=== PATIENT | female | born 1950 | race Caucasian/White ===

== ENCOUNTER → 2017-08-16 16:44 | Outpatient (CLI) | payer OTHER, SELFPAY ==
--- NOTE | 2017-08-16 16:54 | DI.RAD.S_ITS ---
PROCEDURE: XR ANKLE LT MIN 3V INDICATIONS: Pain after injury to left ankle TECHNIQUE: 3 views of the ankle were acquired. COMPARISON: None. FINDINGS: Bones: No dislocations. Ankle mortise is normally aligned. No suspicious bony lesions. There is a small nondisplaced fracture at the inferior tip of the lateral malleolus. Soft tissues: No tibiotalar joint effusion. Achilles tendon appears normal. Soft tissue swelling laterally. IMPRESSION: Lateral soft tissue swelling involving the ankle level, and a relatively subtle fracture is identified at the inferior tip of the lateral malleolus, but the ankle mortise joint is not abnormally widened. Dictated by: Arturo Cameron M.D. on 08/16/2017 at 17:09 Approved by: Arturo Cameron M.D. on 08/16/2017 at 17:10
== END ==
PROVIDERS: Family Provider Family Medicine; PCP Family Medicine; Visit Provider Family Medicine
DX: S82.65XA Nondisplaced fracture of lateral malleolus of left fibula, initial encounter for closed fracture (principal); X58.XXXA Exposure to other specified factors, initial encounter
CPT/HCPCS: 73610

== ENCOUNTER → 2018-01-01 11:04 | Outpatient (CLI) | payer OTHER, SELFPAY ==
--- NOTE | 2018-01-01 11:06 | DI.RAD.S_ITS ---
PROCEDURE: XR ANKLE LT MIN 3V INDICATIONS: ankle sprain TECHNIQUE: 3 views of the ankle were acquired. COMPARISON: [facility], CR, XR ANKLE LT MIN 3V, 08/16/2017, 16:33. FINDINGS: Bones: No dislocations. Ankle mortise is normally aligned. No suspicious bony lesions. There is a transverse nondisplaced fracture at the inferior tip of the lateral malleolus. A more inferior acute-appearing fracture have been present in July of this year. Soft tissues: No tibiotalar joint effusion. Achilles tendon appears normal. IMPRESSION: No trauma to the tibia is found that there is a transverse fracture across the inferior aspect of the fibula, above an area of prior more inferior fracture from July of this year.. Dictated by: Arturo Cameron M.D. on 01/01/2018 at 12:06 Approved by: Arturo Cameron M.D. on 01/01/2018 at 12:08
== END ==
PROVIDERS: Family Provider Family Medicine; PCP Family Medicine; Visit Provider Family Medicine
DX: S93.409A Sprain of unspecified ligament of unspecified ankle, initial encounter (principal); S82.65XD Nondisplaced fracture of lateral malleolus of left fibula, subsequent encounter for closed fracture with routine healing
CPT/HCPCS: 73610

== ENCOUNTER → 2018-02-28 13:05 | Outpatient (CLI) | payer OTHER, SELFPAY ==
--- NOTE | 2018-02-28 13:07 | DI.RAD.S_ITS ---
PROCEDURE: XR ANKLE LT MIN 3V INDICATIONS: Left fibula fx TECHNIQUE: 3 views of the ankle were acquired. COMPARISON: [facility], CR, XR ANKLE LT MIN 3V, 01/01/2018, 10:43. FINDINGS: Bones: Distal fibular/lateral malleolar fracture are again noted and unchanged alignment. There is less conspicuous appearance of the fracture lucency. Posterior and plantar calcaneal spurs. Soft tissues: No tibiotalar joint effusion. Achilles tendon appears normal. IMPRESSION: Unchanged alignment of healing lateral malleolar fracture. Dictated by: Stephan Marrero M.D. on 02/28/2018 at 16:10 Approved by: Stephan Marrero M.D. on 02/28/2018 at 16:11
== END ==
PROVIDERS: Family Provider Family Medicine; PCP Family Medicine; Visit Provider Family Medicine
DX: S82.62XD Displaced fracture of lateral malleolus of left fibula, subsequent encounter for closed fracture with routine healing (principal)
CPT/HCPCS: 73610

== ENCOUNTER → 2018-04-09 08:31 | Outpatient (CLI) | payer OTHER, SELFPAY ==
--- NOTE | 2018-04-09 08:36 | DI.RAD.S_ITS ---
PROCEDURE: XR ANKLE LT MIN 3V INDICATIONS: fibula fx TECHNIQUE: 3 views of the ankle were acquired. COMPARISON: [facility], CR, XR ANKLE LT MIN 3V, 02/28/2018, 13:17. [facility], CR, XR ANKLE LT MIN 3V, 01/01/2018, 10:43. FINDINGS: Bones: No previously unidentified fractures or dislocations, and the transverse fracture through the inferior margin of the fibula shows normal alignment with fusion by plain film appearance. Ankle mortise is normally aligned. No suspicious bony lesions. Soft tissues: No tibiotalar joint effusion. Achilles tendon appears normal. IMPRESSION: Healing or healed nondisplaced fracture inferior aspect of the left fibula. Dictated by: Arturo Cameron M.D. on 04/09/2018 at 9:08 Approved by: Arturo Cameron M.D. on 04/09/2018 at 9:09
== END ==
PROVIDERS: Family Provider Family Medicine; PCP Family Medicine; Visit Provider Family Medicine
DX: S82.492D Other fracture of shaft of left fibula, subsequent encounter for closed fracture with routine healing (principal)
CPT/HCPCS: 73610

== ENCOUNTER → 2018-05-10 08:18 | Outpatient (CLI) | payer OTHER, SELFPAY ==
--- NOTE | 2018-05-10 | DI.MG.S_ITS ---
BILATERAL DIGITAL SCREENING MAMMOGRAM 3D/2D WITH CAD: 05/10/2018 CLINICAL: Routine screening. Family history of breast cancer. Comparison is made to exams dated: 05/01/2017 mammogram, 04/21/2016 mammogram, and 04/20/2015 mammogram - [facility]. There are scattered fibroglandular elements in both breasts. Current study was also evaluated with a Computer Aided Detection (CAD) system. No significant masses, calcifications, or other findings are seen in either breast. There has been no significant interval change. IMPRESSION: NEGATIVE There is no mammographic evidence of malignancy. A 1 year screening mammogram is recommended. This exam was interpreted at Station ID: [id number]. NOTE: For mammograms, a report in lay terms will be sent to the patient. Approximately 15% of breast malignancies will not be visualized mammographically. In the management of a palpable breast mass, a negative mammogram must not discourage biopsy of a clinically suspicious lesion. Electronically Signed By: Iván rand/tramaine:05/10/2018 12:55:15 letter sent: Normal Exam ACR BI-RADS Category 1: Negative [id number]
== END ==
PROVIDERS: PCP Family Medicine; Visit Provider Family Medicine
DX: Z12.31 Encounter for screening mammogram for malignant neoplasm of breast (principal); Z80.3 Family history of malignant neoplasm of breast
CPT/HCPCS: 77063; 77067

== ENCOUNTER 2018-06-19 11:15 | Outpatient (RCR) | payer OTHER, SELFPAY ==
--- NOTE | 2018-05-01 15:53 | PT.OIE ---
Current Diagnoses Pain in left ankle and joints of left foot (05/01/18) Stiffness of left ankle, not elsewhere classified (05/01/18) Muscle weakness (generalized) (05/01/18) Nondisplaced fracture of lateral malleolus of left fibula, subsequent encounter for closed fracture with routine healing (05/01/18) Past Medical History (Last Reviewed 01/01/18 @ 10:32 by Kylee Brar LPN) Back problem (Chronic ~2004) Benign tumor of pineal body (Chronic) Carpal tunnel syndrome (Chronic) Cataracts, bilateral (Chronic ~2011) Chronic back pain (Chronic ~2004) Dry eye syndrome (Chronic ~1989) Headache (Chronic ~1987) Hearing loss (Chronic ~2011) Hypertension (Chronic ~2011) Irregular menstrual cycle (Chronic) Migraines (Chronic ~1991) Tear of meniscus of knee (Chronic ~2009) Anemia (Resolved ~2009) Fibroids (Resolved) Fractures (Resolved) Genital warts (Resolved) Measles (Resolved) Past Surgical History (Last Reviewed 01/01/18 @ 10:32 by Kylee Brar LPN) Anesthesia (Resolved) Foreign body (Resolved ~2009) History of oral surgery (Resolved) History of cataract removal with insertion of prosthetic lens Status post arthroscopy (~2010) Status post hysterectomy (~1988) Provider Visit Care Team Role Provider Type John Dejesus MD Attending Provider Physician Family Provider Primary Care Provider Specialty: Family Practice Address: [address] [place] [address] Email: [email or web address] Physical Therapy Initial Evaluation PT-OP-A Visit Information Start: 05/01/18 15:21 Freq: Status: Active Protocol: Document 05/01/18 14:30 DCW (Rec: 05/01/18 15:53 DCW [id number]) Out-Patient Physical Therapy Visit Information Visit Information Visit Type Initial Evaluation Visit Start Time 14:30 Visit Stop Time 15:15 Total Visit Minutes 45 Visit Number 1 Number of HAND BUFFER Visits 0 Evaluation Information Evaluation Date 05/01/18 PT-OP-B Current Condition Start: 05/01/18 15:21 Freq: Status: Active Protocol: Document 05/01/18 14:30 DCW (Rec: 05/01/18 15:53 [facility] [id number]) Current Condition History of Current Condition Onset Date 9 months Current Complaints Left ankle stiffness and weakness s/p distal left fibula Fx History of Current Condition Pt is a 67 year old female presenting 9 months s/p L fibular fracture. Pt reports last July, she fell from a running horse, and experienced severe bruising and swelling in her left ankle. X-rays returned negative, and she slowly improved to the point she was able to get back to horseriding, however in December she re-injured her ankle when her foot got caught between two horses and twisted around. Resultant x- rays showed no new fractures, however noted that she did have a prior fracture from the original injury. Notes that following this injury, she had difficulty walking, and was unable to move laterally. Everything seems to be getting better, but she still has mild pain with lateral movement, and has been out on her horse two times, for 1.5 and 2.5 miles, and both times she was sore by the end of her ride. Additionally, she has increased pain getting up into her stirrups. Prior Treatments and Tests Prior x-rays: Healing or healed nondisplaced fracture inferior aspect of the left fibula per Lina Angeles on 04/09/2018 Treatment Goals Patient/Caregiver Goals Return to all aspects of horse riding pain-free Prior Functional Status Baseline Function- ADL's Independent Baseline Function- Mobility Independent Current Functional Impairments (Reported) Functional Limitations- Recreation/ Pain while horse riding, Hobbies difficulty using stirrups to get onto horse back. PT-OP-C Subjective Start: 05/01/18 15:21 Freq: Status: Active Protocol: Document 05/01/18 14:30 [facility] (Rec: 05/01/18 15:53 [facility] [id number]) OP-PT Subjective Patient Comments Patient Comments Pt notes walking has been much better, but admits she has not been very active over the winter. Patient Reported Progress Improving Patient Questionnaires Foot & Ankle Ability Measure- ADL and Sports FAAM-ADL Score 77/84 = 91.67% FAAM-ADL Impairment 1 to 19% Impaired (Score 67-83 ) FAAM-Sport Score 12/22 = 32.14 FAAM-Sport Impairment 60 to 79% Impaired (Score 6-11 ) PT-OP-F Manual Assessment Start: 05/01/18 15:21 Freq: Status: Active Protocol: Document 05/01/18 14:30 DCW (Rec: 05/01/18 15:53 DCW [id number]) Manual Assessments Soft Tissue Assessment Soft Tissue Mobility Assessment Tenderness to palpation 1/4 - Complaint of pain at left ATF ligament and PTF ligament, Moderate tone throughout left gastrosoleus complex. PT-OP-G Mobility & Gait Start: 05/01/18 15:21 Freq: Status: Active Protocol: Document 05/01/18 14:30 DCW (Rec: 05/01/18 15:53 DCW [id number]) OP Gait Assessment Gait Gait Assistance Required: Independent Able to Maintain Weight Bearing Status Yes During Gait Assistive Devices Assistive Device None Orthotic/Prosthetic Devices or Brace: No Gait Deviations General Gait Pattern Within Normal Limits Comments Gait Comments Community gait distance WNL, mild pain with turning while ambulating a fast sppeds, uncomfortable with uneven surfaces. PT-OP-K Range of Motion Start: 05/01/18 15:21 Freq: Status: Active Protocol: Document 05/01/18 14:30 DCW (Rec: 05/01/18 15:53 DCW [id number]) Ankle and Foot Goniometric Range of Motion Ankle and Foot Measured in Degrees Right Ankle/Foot ROM WFL Yes Left Passive Ankle/Foot ROM WFL No Testing Position Sitting Dorsiflexion with Knee Flexed 10 Plantarflexion 40 Inversion 35 Eversion 20 Left Active Ankle/Foot ROM WFL No Testing Position Sitting Dorsiflexion with Knee Flexed 5 Plantarflexion 50 Inversion 35 Eversion 15 PT-OP-L Special Tests Start: 05/01/18 15:21 Freq: Status: Active Protocol: Document 05/01/18 14:30 DCW (Rec: 05/01/18 15:53 DCW [id number]) Special Tests Foot/Ankle Special Tests Post Tibiotalor Subluxation Test Results Negative Talor Tilt Test Results Negative Anterior Draw Test Results Negative PT-OP-M Strength Start: 05/01/18 15:21 Freq: Status: Active Protocol: Document 05/01/18 14:30 DCW (Rec: 05/01/18 15:53 DCW [id number]) Ankle/Foot Strength Ankle and Foot Manual Muscle Testing Left Dorsiflexion (L4) 4+ Good+ Plantarflexion (S1) 3+ Fair+ Inversion 4+ Good+ Eversion (S1) 4+ Good+ Comments single-leg heel raise on L foot = 2 reps PT-OP-Q Treatments Start: 05/01/18 15:21 Freq: Status: Active Protocol: Document 05/01/18 14:30 DCW (Rec: 05/01/18 15:53 DCW [id number]) Therapeutic Exercises Sitting Exercises Gastroc Stretch Sitting Exercise Name Towel stretch Side left 4-way ankle flexion Sitting Exercise Name 4-way ankle flexion Side left Resistance Lv 2 Equipment Used T-band Standing Exercises Heel-raises Standing Exercise Name Single-leg eccentric heel raises Side left PT-OP-T Assessment and Plan Start: 05/01/18 15:21 Freq: Status: Active Protocol: Document 05/01/18 14:30 DCW (Rec: 05/01/18 15:53 DCW [id number]) Physical Therapy Assessment Rehab Potential Rehabilitation Potential Excellent Evaluation Complexity Number of Personal Factors/Comorbidities 1-2 Number of Body Systems Impaired 1-2 Clinical Presentation at Evaluation Stable Impairments Impairments Activity Tolerance Functional Activities Functional Mobility Pain ROM Soft Tissue Mobility Strength Tone Goals Four Impairment Ankle weakness Jail Goal (LTG) Pt to perform 15 (4+/5 MMT) L single-leg heel raises LTG Duration 05/29/18 Three Impairment Limited ROM Optician Manager Goal (LTG) Left dorsiflexion to increase from 5? to 20? Left eversion to increase from 15? to 25? LTG Duration 05/29/18 Two Impairment Pt unable to ride horses without ankle pain Optician Manager Goal (LTG) Pt to return to riding her horse to pre-morbid distance without increasing ankle pain LTG Duration 05/29/18 One Impairment Pt does not have an appropriate HEP Short Term Goal (STG) Pt to be independent and compliant with an appropriate HEP STG Duration 05/15/18 Assessment Summary Assessment Pt presents with left ankle weakness, stiffness, and activity limitations secondary to her left fibula fracture. Special testing reveals no apparent ligamental rupture, however her continued tenderness along her ATF and PTF likely suggest ligmentus sprain. Pt's ROM is currently limited in dorsiflexion and eversion, and weakness with plantarflexion, although this is likely limited more by pain than true weakness. Pt should benefit from skilled therapy focusing on improving ROM, decreasing gastroc stiffness, strengthening her ankle musculature, and improving her activity tolerance. Physical Therapy Plan Frequency and Duration Frequency of Treatment 1x/Week Duration of Treatment 8 weeks Plan of Care Start Date 05/01/18 Plan of Care End Date 06/26/18 Therapeutic Interventions Therapeutic Interventions Aquatic Therapy Home Exercise Program Joint Mobilizations Manual Therapy Patient/Caregiver Education Soft Tissue Mobilization Therapeutic Activities Therapeutic Exercises Modalities Cold Pack/Ice Massage Electric Stimulation Hot Packs Ultrasound Next Visit Focus/Plan Next Note Type Treatment Note Next Visit Plan Assess HEP, ankle strengthening, ROM, flexibility
--- NOTE | 2018-05-01 15:54 | PT.OPPOC ---
Current Diagnoses Pain in left ankle and joints of left foot (05/01/18) Stiffness of left ankle, not elsewhere classified (05/01/18) Muscle weakness (generalized) (05/01/18) Nondisplaced fracture of lateral malleolus of left fibula, subsequent encounter for closed fracture with routine healing (05/01/18) Provider Visit Care Team Role Provider Type John Dejesus MD Attending Provider Physician Family Provider Primary Care Provider Specialty: Family Practice Address: [address] [place] [address], [id number] Email: [email or web address] Plan Of Care PT-OP-T Assessment and Plan Start: 05/01/18 15:21 Freq: Status: Active Protocol: Document 05/01/18 14:30 DCW (Rec: 05/01/18 15:53 DCW [id number]) Physical Therapy Assessment Rehab Potential Rehabilitation Potential Excellent Evaluation Complexity Number of Personal Factors/Comorbidities 1-2 Number of Body Systems Impaired 1-2 Clinical Presentation at Evaluation Stable Impairments Impairments Activity Tolerance Functional Activities Functional Mobility Pain ROM Soft Tissue Mobility Strength Tone Goals Four Impairment Ankle weakness Vice President Of Talent Acquisition Goal (LTG) Pt to perform 15 (4+/5 MMT) L single-leg heel raises LTG Duration 05/29/18 Three Impairment Limited ROM Senior Care Goal (LTG) Left dorsiflexion to increase from 5? to 20? Left eversion to increase from 15? to 25? LTG Duration 05/29/18 Two Impairment Pt unable to ride horses without ankle pain Senior Care Goal (LTG) Pt to return to riding her horse to pre-morbid distance without increasing ankle pain LTG Duration 05/29/18 One Impairment Pt does not have an appropriate HEP Short Term Goal (STG) Pt to be independent and compliant with an appropriate HEP STG Duration 05/15/18 Assessment Summary Assessment Pt presents with left ankle weakness, stiffness, and activity limitations secondary to her left fibula fracture. Special testing reveals no apparent ligamental rupture, however her continued tenderness along her ATF and PTF likely suggest ligmentus sprain. Pt's ROM is currently limited in dorsiflexion and eversion, and weakness with plantarflexion, although this is likely limited more by pain than true weakness. Pt should benefit from skilled therapy focusing on improving ROM, decreasing gastroc stiffness, strengthening her ankle musculature, and improving her activity tolerance. Physical Therapy Plan Frequency and Duration Frequency of Treatment 1x/Week Duration of Treatment 8 weeks Plan of Care Start Date 05/01/18 Plan of Care End Date 06/26/18 Therapeutic Interventions Therapeutic Interventions Aquatic Therapy Home Exercise Program Joint Mobilizations Manual Therapy Patient/Caregiver Education Soft Tissue Mobilization Therapeutic Activities Therapeutic Exercises Modalities Cold Pack/Ice Massage Electric Stimulation Hot Packs Ultrasound Next Visit Focus/Plan Next Note Type Treatment Note Next Visit Plan Assess HEP, ankle strengthening, ROM, flexibility Plan of Care Dates Plan of Care Start Date 05/01/18 Plan of Care End Date 06/26/18 Please Sign and Return: I have reviewed this Plan of Care and certify that the skilled therapy services above are required to meet the patient?s needs. Physician Signature Date Printed Name and Credentials Clinical Instructor Signature Printed Name and Credentials
--- NOTE | 2018-05-16 12:49 | PT.OTN ---
Current Diagnoses Pain in left ankle and joints of left foot (05/16/18) Physical Therapy Treatment Note PT-OP-A Visit Information Start: 05/01/18 15:21 Freq: Status: Active Protocol: Document 05/16/18 12:00 DCW (Rec: 05/16/18 12:49 DCW [id number]) Out-Patient Physical Therapy Visit Information Visit Information Visit Type Treatment Note Visit Start Time 12:00 Visit Stop Time 12:45 Total Visit Minutes 45 Visit Number 2 Number of DIVING FISHER Visits 0 Evaluation Information Evaluation Date 05/01/18 PT-OP-B Current Condition Start: 05/01/18 15:21 Freq: Status: Active Protocol: Document 05/01/18 14:30 DCW (Rec: 05/01/18 15:53 DCW [id number]) Current Condition History of Current Condition Onset Date 9 months Current Complaints Left ankle stiffness and weakness s/p distal left fibula Fx History of Current Condition Pt is a 67 year old female presenting 9 months s/p L fibular fracture. Pt reports last July, she fell from a running horse, and experienced severe bruising and swelling in her left ankle. X-rays returned negative, and she slowly improved to the point she was able to get back to horseriding, however in December she re-injured her ankle when her foot got caught between two horses and twisted around. Resultant x- rays showed no new fractures, however noted that she did have a prior fracture from the original injury. Notes that following this injury, she had difficulty walking, and was unable to move laterally. Everything seems to be getting better, but she still has mild pain with lateral movement, and has been out on her horse two times, for 1.5 and 2.5 miles, and both times she was sore by the end of her ride. Additionally, she has increased pain getting up into her stirrups. Prior Treatments and Tests Prior x-rays: Healing or healed nondisplaced fracture inferior aspect of the left fibula per Lina Angeles on 04/09/2018 Treatment Goals Patient/Caregiver Goals Return to all aspects of horse riding pain-free Prior Functional Status Baseline Function- ADL's Independent Baseline Function- Mobility Independent Current Functional Impairments (Reported) Functional Limitations- Recreation/ Pain while horse riding, Hobbies difficulty using stirrups to get onto horse back. PT-OP-C Subjective Start: 05/01/18 15:21 Freq: Status: Active Protocol: Document 05/16/18 12:00 DCW (Rec: 05/16/18 12:49 DCW [id number]) OP-PT Subjective Patient Comments Patient Comments Pt had phoned the clinic last Thrsday, reporting that she had been having some increased pain with her HEP. Pt reports she has been feeling better since then, but she did a lot of walking on Monday, and was fairly sore and was limping by the end of the day. PT-OP-F Manual Assessment Start: 05/01/18 15:21 Freq: Status: Active Protocol: Document 05/01/18 14:30 DCW (Rec: 05/01/18 15:53 DCW [id number]) Manual Assessments Soft Tissue Assessment Soft Tissue Mobility Assessment Tenderness to palpation 1/4 - Complaint of pain at left ATF ligament and PTF ligament, Moderate tone throughout left gastrosoleus complex. PT-OP-G Mobility & Gait Start: 05/01/18 15:21 Freq: Status: Active Protocol: Document 05/01/18 14:30 DCW (Rec: 05/01/18 15:53 DCW [id number]) OP Gait Assessment Gait Gait Assistance Required: Independent Able to Maintain Weight Bearing Status Yes During Gait Assistive Devices Assistive Device None Orthotic/Prosthetic Devices or Brace: No Gait Deviations General Gait Pattern Within Normal Limits Comments Gait Comments Community gait distance WNL, mild pain with turning while ambulating a fast sppeds, uncomfortable with uneven surfaces. PT-OP-K Range of Motion Start: 05/01/18 15:21 Freq: Status: Active Protocol: Document 05/01/18 14:30 DCW (Rec: 05/01/18 15:53 DCW [id number]) Ankle and Foot Goniometric Range of Motion Ankle and Foot Measured in Degrees Right Ankle/Foot ROM WFL Yes Left Passive Ankle/Foot ROM WFL No Testing Position Sitting Dorsiflexion with Knee Flexed 10 Plantarflexion 40 Inversion 35 Eversion 20 Left Active Ankle/Foot ROM WFL No Testing Position Sitting Dorsiflexion with Knee Flexed 5 Plantarflexion 50 Inversion 35 Eversion 15 PT-OP-L Special Tests Start: 02/05/19 15:21 Freq: Status: Active Protocol: Document 05/01/18 14:30 DCW (Rec: 05/01/18 15:53 DCW [id number]) Special Tests Foot/Ankle Special Tests Post Tibiotalor Subluxation Test Results Negative Talor Tilt Test Results Negative Anterior Draw Test Results Negative PT-OP-M Strength Start: 05/01/18 15:21 Freq: Status: Active Protocol: Document 05/01/18 14:30 DCW (Rec: 05/01/18 15:53 DCW [id number]) Ankle/Foot Strength Ankle and Foot Manual Muscle Testing Left Dorsiflexion (L4) 4+ Good+ Plantarflexion (S1) 3+ Fair+ Inversion 4+ Good+ Eversion (S1) 4+ Good+ Comments single-leg heel raise on L foot = 2 reps PT-OP-Q Treatments Start: 05/01/18 15:21 Freq: Status: Active Protocol: Document 05/16/18 12:00 DCW (Rec: 05/16/18 12:49 DCW [id number]) Gym Equipment Shuttle Recovery Bilateral Heel Raises Resistance 50# Shuttle Balance Red Details Wide ADE, Staggered Stance, Lateral Weight Shift Therapeutic Exercises Standing Exercises BAPS Standing Exercise Name DF/PF, Inv/Ev, CW/CCW Side left Resistance Lv 5 Calf stretch Standing Exercise Name PETER Reps/Minutes 2x 40 Manual Therapy Treatment Joint Mobilizations 1 Joint Tibiotalar Direction A->P Grade III Body Position Sitting Other Other Manual Treatments PROM of ankle into DF/PF and Inv/Ev Neuro Re-Education Treatment Balance Activities Semi-tandem Stance Details Semi-tandem stance Surface Blue foam SLS Details SLS on foam Surface Blue foam PT-OP-T Assessment and Plan Start: 05/01/18 15:21 Freq: Status: Active Protocol: Document 05/16/18 12:00 DCW (Rec: 05/16/18 12:49 DCW [id number]) Physical Therapy Assessment Impairments Impairments Activity Tolerance Functional Activities Functional Mobility Pain ROM Soft Tissue Mobility Strength Tone Goals Four Impairment Ankle weakness Nursing Home Goal (LTG) Pt to perform 15 (4+/5 MMT) L single-leg heel raises LTG Duration 05/29/18 Three Impairment Limited ROM Nursing Home Goal (LTG) Left dorsiflexion to increase from 5? to 20? Left eversion to increase from 15? to 25? LTG Duration 05/29/18 Two Impairment Pt unable to ride horses without ankle pain Asset Accountant Goal (LTG) Pt to return to riding her horse to pre-morbid distance without increasing ankle pain LTG Duration 05/29/18 One Impairment Pt does not have an appropriate HEP Short Term Goal (STG) Pt to be independent and compliant with an appropriate HEP STG Duration 05/15/18 Assessment Summary Assessment Pt tolerated treatment very well, mild soreness with more physical TherEx and stabilization training, working hard at home with her HEP. Improving ROM and strength since her eval two weeks ago. Physical Therapy Plan Frequency and Duration Frequency of Treatment 1x/Week Duration of Treatment 8 weeks Plan of Care Start Date 05/01/18 Plan of Care End Date 06/26/18 Therapeutic Interventions Therapeutic Interventions Aquatic Therapy Home Exercise Program Joint Mobilizations Manual Therapy Patient/Caregiver Education Soft Tissue Mobilization Therapeutic Activities Therapeutic Exercises Modalities Cold Pack/Ice Massage Electric Stimulation Hot Packs Ultrasound Next Visit Focus/Plan Next Note Type Treatment Note Next Visit Plan Assess HEP, ankle strengthening, ROM, flexibility
--- NOTE | 2018-05-23 12:48 | PT.OTN ---
Current Diagnoses Pain in left ankle and joints of left foot (05/23/18) Physical Therapy Treatment Note PT-OP-A Visit Information Start: 05/01/18 15:21 Freq: Status: Active Protocol: Document 05/23/18 12:00 DCW (Rec: 05/23/18 12:45 DCW [id number]) Out-Patient Physical Therapy Visit Information Visit Information Visit Type Treatment Note Visit Start Time 12:00 Visit Stop Time 12:45 Total Visit Minutes 45 Visit Number 3 Number of SWITCH BOX INSTALLER Visits 0 Evaluation Information Evaluation Date 05/01/18 PT-OP-B Current Condition Start: 05/01/18 15:21 Freq: Status: Active Protocol: Document 05/01/18 14:30 DCW (Rec: 05/01/18 15:53 DCW [id number]) Current Condition History of Current Condition Onset Date 9 months Current Complaints Left ankle stiffness and weakness s/p distal left fibula Fx History of Current Condition Pt is a 67 year old female presenting 9 months s/p L fibular fracture. Pt reports last July, she fell from a running horse, and experienced severe bruising and swelling in her left ankle. X-rays returned negative, and she slowly improved to the point she was able to get back to horseriding, however in December she re-injured her ankle when her foot got caught between two horses and twisted around. Resultant x- rays showed no new fractures, however noted that she did have a prior fracture from the original injury. Notes that following this injury, she had difficulty walking, and was unable to move laterally. Everything seems to be getting better, but she still has mild pain with lateral movement, and has been out on her horse two times, for 1.5 and 2.5 miles, and both times she was sore by the end of her ride. Additionally, she has increased pain getting up into her stirrups. Prior Treatments and Tests Prior x-rays: Healing or healed nondisplaced fracture inferior aspect of the left fibula per Lina Angeles on 04/09/2018 Treatment Goals Patient/Caregiver Goals Return to all aspects of horse riding pain-free Prior Functional Status Baseline Function- ADL's Independent Baseline Function- Mobility Independent Current Functional Impairments (Reported) Functional Limitations- Recreation/ Pain while horse riding, Hobbies difficulty using stirrups to get onto horse back. PT-OP-C Subjective Start: 05/01/18 15:21 Freq: Status: Active Protocol: Document 05/23/18 12:00 DCW (Rec: 05/23/18 12:45 DCW [id number]) OP-PT Subjective Patient Comments Patient Comments Pt reports that she spent a day outside doing work on uneven ground, and while she was sore afterward, it overall felt pretty good. PT-OP-F Manual Assessment Start: 05/01/18 15:21 Freq: Status: Active Protocol: Document 05/01/18 14:30 DCW (Rec: 05/01/18 15:53 DCW [id number]) Manual Assessments Soft Tissue Assessment Soft Tissue Mobility Assessment Tenderness to palpation 1/4 - Complaint of pain at left ATF ligament and PTF ligament, Moderate tone throughout left gastrosoleus complex. PT-OP-G Mobility & Gait Start: 05/01/18 15:21 Freq: Status: Active Protocol: Document 05/01/18 14:30 DCW (Rec: 05/01/18 15:53 DCW [id number]) OP Gait Assessment Gait Gait Assistance Required: Independent Able to Maintain Weight Bearing Status Yes During Gait Assistive Devices Assistive Device None Orthotic/Prosthetic Devices or Brace: No Gait Deviations General Gait Pattern Within Normal Limits Comments Gait Comments Community gait distance WNL, mild pain with turning while ambulating a fast sppeds, uncomfortable with uneven surfaces. PT-OP-K Range of Motion Start: 05/01/18 15:21 Freq: Status: Active Protocol: Document 05/23/18 12:00 DCW (Rec: 05/23/18 12:48 DCW [id number]) Ankle and Foot Goniometric Range of Motion Ankle and Foot Measured in Degrees Left Passive Dorsiflexion with Knee Flexed 14 Plantarflexion 70 Inversion 35 Eversion 20 Left Active Dorsiflexion with Knee Flexed 10 Plantarflexion 55 Inversion 35 Eversion 15 PT-OP-L Special Tests Start: 05/01/18 15:21 Freq: Status: Active Protocol: Document 05/01/18 14:30 DCW (Rec: 05/01/18 15:53 DCW [id number]) Special Tests Foot/Ankle Special Tests Post Tibiotalor Subluxation Test Results Negative Talor Tilt Test Results Negative Anterior Draw Test Results Negative PT-OP-M Strength Start: 05/01/18 15:21 Freq: Status: Active Protocol: Document 05/01/18 14:30 DCW (Rec: 05/01/18 15:53 DCW [id number]) Ankle/Foot Strength Ankle and Foot Manual Muscle Testing Left Dorsiflexion (L4) 4+ Good+ Plantarflexion (S1) 3+ Fair+ Inversion 4+ Good+ Eversion (S1) 4+ Good+ Comments single-leg heel raise on L foot = 2 reps PT-OP-Q Treatments Start: 05/01/18 15:21 Freq: Status: Active Protocol: Document 05/23/18 12:00 DCW (Rec: 05/23/18 12:45 DCW [id number]) Gym Equipment Shuttle Balance Red Details Wide ADE, Staggered Stance, Lateral Weight Shift Therapeutic Exercises Standing Exercises BAPS Standing Exercise Name DF/PF, Inv/Ev, CW/CCW Side left Resistance Lv 5 Calf stretch Standing Exercise Name PETER Reps/Minutes 2x 40 Manual Therapy Treatment Joint Mobilizations 1 Joint Tibiotalar Direction A->P Grade III Body Position Sitting Other Other Manual Treatments PROM of ankle into DF/PF and Inv/Ev Neuro Re-Education Treatment Balance Activities Semi-tandem Stance Details Semi-tandem stance Surface Flor foam SLS Details SLS on foam Surface Flor foam PT-OP-R Modalities Start: 05/01/18 15:21 Freq: Status: Active Protocol: Document 05/23/18 12:00 DCW (Rec: 05/23/18 12:48 DCW [id number]) Hot Pack/Cold Pack Treatment Ice Massage Location L peroneal tendon Patient Position Sitting Treatment Duration (minutes) 5 Patient Tolerance Good PT-OP-T Assessment and Plan Start: 05/01/18 15:21 Freq: Status: Active Protocol: Document 05/23/18 12:00 DCW (Rec: 05/23/18 12:45 DCW [id number]) Physical Therapy Assessment Impairments Impairments Activity Tolerance Functional Activities Functional Mobility Pain ROM Soft Tissue Mobility Strength Tone Goals Four Impairment Ankle weakness Television And Radio Repairer Goal (LTG) Pt to perform 15 (4+/5 MMT) L single-leg heel raises LTG Duration 05/29/18 Three Impairment Limited ROM Television And Radio Repairer Goal (LTG) Left dorsiflexion to increase from 5? to 20? Left eversion to increase from 15? to 25? LTG Duration 05/29/18 Two Impairment Pt unable to ride horses without ankle pain Television And Radio Repairer Goal (LTG) Pt to return to riding her horse to pre-morbid distance without increasing ankle pain LTG Duration 05/29/18 One Impairment Pt does not have an appropriate HEP Short Term Goal (STG) Pt to be independent and compliant with an appropriate HEP STG Duration 05/15/18 Assessment Summary Assessment Pt was fantastic with most activities, however near end of session, SLS and Tandem stance on foam increased soreness, so session ended with ice massage, which appeared to help. Pt is leaving soon for a one month vacation, and plans to schedule a follow-up for when she returns to the state. Physical Therapy Plan Frequency and Duration Frequency of Treatment 1x/Week Duration of Treatment 8 weeks Plan of Care Start Date 05/01/18 Plan of Care End Date 06/26/18 Therapeutic Interventions Therapeutic Interventions Aquatic Therapy Home Exercise Program Joint Mobilizations Manual Therapy Patient/Caregiver Education Soft Tissue Mobilization Therapeutic Activities Therapeutic Exercises Modalities Cold Pack/Ice Massage Electric Stimulation Hot Packs Ultrasound Next Visit Focus/Plan Next Note Type Treatment Note Next Visit Plan Assess HEP, ankle strengthening, ROM, flexibility
--- NOTE | 2018-06-19 12:02 | PT.OTN ---
Current Diagnoses Pain in left ankle and joints of left foot (06/19/18) Physical Therapy Treatment Note PT-OP-A Visit Information Start: 05/01/18 15:21 Freq: Status: Active Protocol: Document 06/19/18 11:15 DCW (Rec: 06/19/18 12:02 DCW [id number]) Out-Patient Physical Therapy Visit Information Visit Information Visit Type Treatment Note Visit Start Time 11:15 Visit Stop Time 12:00 Total Visit Minutes 45 Visit Number 4 Number of EXPERIMENTAL ROCKET SLED MECHANIC Visits 0 Evaluation Information Evaluation Date 05/01/18 PT-OP-B Current Condition Start: 05/01/18 15:21 Freq: Status: Active Protocol: Document 05/01/18 14:30 DCW (Rec: 05/01/18 15:53 DCW [id number]) Current Condition History of Current Condition Onset Date 9 months Current Complaints Left ankle stiffness and weakness s/p distal left fibula Fx History of Current Condition Pt is a 67 year old female presenting 9 months s/p L fibular fracture. Pt reports last July, she fell from a running horse, and experienced severe bruising and swelling in her left ankle. X-rays returned negative, and she slowly improved to the point she was able to get back to horseriding, however in December she re-injured her ankle when her foot got caught between two horses and twisted around. Resultant x- rays showed no new fractures, however noted that she did have a prior fracture from the original injury. Notes that following this injury, she had difficulty walking, and was unable to move laterally. Everything seems to be getting better, but she still has mild pain with lateral movement, and has been out on her horse two times, for 1.5 and 2.5 miles, and both times she was sore by the end of her ride. Additionally, she has increased pain getting up into her stirrups. Prior Treatments and Tests Prior x-rays: Healing or healed nondisplaced fracture inferior aspect of the left fibula per Arturo Cameron M.D . on 04/09/2018 Treatment Goals Patient/Caregiver Goals Return to all aspects of horse riding pain-free Prior Functional Status Baseline Function- ADL's Independent Baseline Function- Mobility Independent Current Functional Impairments (Reported) Functional Limitations- Recreation/ Pain while horse riding, Hobbies difficulty using stirrups to get onto horse back. PT-OP-C Subjective Start: 05/01/18 15:21 Freq: Status: Active Protocol: Document 06/19/18 11:15 DCW (Rec: 06/19/18 12:01 DCW [id number]) OP-PT Subjective Patient Comments Patient Comments Pt reports she is feeling much better today, not having nearly as much overall pain as she was experiencing during her last appointment. Pt reports she was able to ride her horse about 4 miles over the weekend. PT-OP-F Manual Assessment Start: 05/01/18 15:21 Freq: Status: Active Protocol: Document 05/01/18 14:30 DCW (Rec: 05/01/18 15:53 DCW [id number]) Manual Assessments Soft Tissue Assessment Soft Tissue Mobility Assessment Tenderness to palpation 1/4 - Complaint of pain at left ATF ligament and PTF ligament, Moderate tone throughout left gastrosoleus complex. PT-OP-G Mobility & Gait Start: 05/01/18 15:21 Freq: Status: Active Protocol: Document 05/01/18 14:30 DCW (Rec: 05/01/18 15:53 DCW [id number]) OP Gait Assessment Gait Gait Assistance Required: Independent Able to Maintain Weight Bearing Status Yes During Gait Assistive Devices Assistive Device None Orthotic/Prosthetic Devices or Brace: No Gait Deviations General Gait Pattern Within Normal Limits Comments Gait Comments Community gait distance WNL, mild pain with turning while ambulating a fast sppeds, uncomfortable with uneven surfaces. PT-OP-K Range of Motion Start: 05/01/18 15:21 Freq: Status: Active Protocol: Document 05/23/18 12:00 DCW (Rec: 05/23/18 12:48 DCW [id number]) Ankle and Foot Goniometric Range of Motion Ankle and Foot Measured in Degrees Left Passive Dorsiflexion with Knee Flexed 14 Plantarflexion 70 Inversion 35 Eversion 20 Left Active Dorsiflexion with Knee Flexed 10 Plantarflexion 55 Inversion 35 Eversion 15 PT-OP-L Special Tests Start: 05/01/18 15:21 Freq: Status: Active Protocol: Document 05/01/18 14:30 DCW (Rec: 05/01/18 15:53 DCW [id number]) Special Tests Foot/Ankle Special Tests Post Tibiotalor Subluxation Test Results Negative Talor Tilt Test Results Negative Anterior Draw Test Results Negative PT-OP-M Strength Start: 05/01/18 15:21 Freq: Status: Active Protocol: Document 05/01/18 14:30 DCW (Rec: 05/01/18 15:53 DCW [id number]) Ankle/Foot Strength Ankle and Foot Manual Muscle Testing Left Dorsiflexion (L4) 4+ Good+ Plantarflexion (S1) 3+ Fair+ Inversion 4+ Good+ Eversion (S1) 4+ Good+ Comments single-leg heel raise on L foot = 2 reps PT-OP-Q Treatments Start: 05/01/18 15:21 Freq: Status: Active Protocol: Document 06/19/18 11:15 DCW (Rec: 06/19/18 12:01 DCW [id number]) Gym Equipment Shuttle Recovery Plyometric Hopping Resistance 25# Unilateral Squats Resistance 50# Shuttle Recovery Platform Unstable Shuttle Balance Red Details Wide ADE, Staggered Stance, Lateral Weight Shift Therapeutic Exercises Sitting Exercises Isometric Inversion Sitting Exercise Name Inversion - Isometric /c ball Side bilateral Resistance small ball Reps/Minutes 5 sec hold Ankle Eversion Sitting Exercise Name Eversion Side bilateral Resistance Yellow Equipment Used T-band Other Exercises Heel-Toe Ambulation Other Exercise Name Heel-toe Ambulation Resisted Side-stepping Other Exercise Name Resisted side-stepping Resistance Yellow Equipment Used T-band Comments band around feet Manual Therapy Treatment Joint Mobilizations 1 Joint Tibiotalar Direction A->P Grade III Body Position Sitting Other Other Manual Treatments PROM of ankle into DF/PF and Inv/Ev Neuro Re-Education Treatment Balance Activities SLS Details SLS on foam Surface Flor foam PT-OP-R Modalities Start: 05/01/18 15:21 Freq: Status: Active Protocol: Document 05/23/18 12:00 DCW (Rec: 05/23/18 12:48 DCW [id number]) Hot Pack/Cold Pack Treatment Ice Massage Location L peroneal tendon Patient Position Sitting Treatment Duration (minutes) 5 Patient Tolerance Good PT-OP-T Assessment and Plan Start: 05/01/18 15:21 Freq: Status: Active Protocol: Document 06/19/18 11:15 DCW (Rec: 06/19/18 12:01 DCW [id number]) Physical Therapy Assessment Impairments Impairments Activity Tolerance Functional Activities Functional Mobility Pain ROM Soft Tissue Mobility Strength Tone Goals Four Impairment Ankle weakness Skilled Nursing Goal (LTG) Pt to perform 15 (4+/5 MMT) L single-leg heel raises LTG Duration 05/29/18 Three Impairment Limited ROM Second Shift Supervisor Goal (LTG) Left dorsiflexion to increase from 5? to 20? Left eversion to increase from 15? to 25? LTG Duration 05/29/18 Two Impairment Pt unable to ride horses without ankle pain Skilled Nursing Goal (LTG) Pt to return to riding her horse to pre-morbid distance without increasing ankle pain LTG Duration 05/29/18 One Impairment Pt does not have an appropriate HEP Short Term Goal (STG) Pt to be independent and compliant with an appropriate HEP STG Duration 05/15/18 Assessment Summary Assessment Pt tolerated treatment very well today, approaching discharge. At this time, pt does not have any more appointments scheduled, and is agreeable to play it by ear and call in within the next month if she requires any more therapy. Physical Therapy Plan Frequency and Duration Frequency of Treatment 1x/Week Duration of Treatment 8 weeks Plan of Care Start Date 05/01/18 Plan of Care End Date 06/26/18 Therapeutic Interventions Therapeutic Interventions Aquatic Therapy Home Exercise Program Joint Mobilizations Manual Therapy Patient/Caregiver Education Soft Tissue Mobilization Therapeutic Activities Therapeutic Exercises Modalities Cold Pack/Ice Massage Electric Stimulation Hot Packs Ultrasound Next Visit Focus/Plan Next Note Type Treatment Note Next Visit Plan Assess HEP, ankle strengthening, ROM, flexibility
--- NOTE | 2018-10-01 11:45 | PT.OPDS ---
Current Diagnoses Pain in left ankle and joints of left foot (06/19/18) Provider Visit Care Team Role Provider Type John Dejesus MD Attending Provider Physician Family Provider Primary Care Provider Specialty: Family Practice Address: [address] [place] [address], [facility] Email: [email or web address] Visit Number Visit Number 4 Discharge Summary PT-OP-B Current Condition Start: 05/01/18 15:21 Freq: Status: Active Protocol: Document 05/01/18 14:30 DCW (Rec: 05/01/18 15:53 DCW [id number]) Current Condition History of Current Condition Onset Date 9 months Current Complaints Left ankle stiffness and weakness s/p distal left fibula Fx History of Current Condition Pt is a 67 year old female presenting 9 months s/p L fibular fracture. Pt reports last July, she fell from a running horse, and experienced severe bruising and swelling in her left ankle. X-rays returned negative, and she slowly improved to the point she was able to get back to horseriding, however in December she re-injured her ankle when her foot got caught between two horses and twisted around. Resultant x- rays showed no new fractures, however noted that she did have a prior fracture from the original injury. Notes that following this injury, she had difficulty walking, and was unable to move laterally. Everything seems to be getting better, but she still has mild pain with lateral movement, and has been out on her horse two times, for 1.5 and 2.5 miles, and both times she was sore by the end of her ride. Additionally, she has increased pain getting up into her stirrups. Prior Treatments and Tests Prior x-rays: Healing or healed nondisplaced fracture inferior aspect of the left fibula per Lina Angeles on 04/09/2018 Treatment Goals Patient/Caregiver Goals Return to all aspects of horse riding pain-free Prior Functional Status Baseline Function- ADL's Independent Baseline Function- Mobility Independent Current Functional Impairments (Reported) Functional Limitations- Recreation/ Pain while horse riding, Hobbies difficulty using stirrups to get onto horse back. PT-OP-C Subjective Start: 05/01/18 15:21 Freq: Status: Active Protocol: Document 06/19/18 11:15 DCW (Rec: 06/19/18 12:01 DCW [id number]) OP-PT Subjective Patient Comments Patient Comments Pt reports she is feeling much better today, not having nearly as much overall pain as she was experiencing during her last appointment. Pt reports she was able to ride her horse about 4 miles over the weekend. PT-OP-F Manual Assessment Start: 05/01/18 15:21 Freq: Status: Active Protocol: Document 05/01/18 14:30 DCW (Rec: 05/01/18 15:53 DCW [id number]) Manual Assessments Soft Tissue Assessment Soft Tissue Mobility Assessment Tenderness to palpation 1/4 - Complaint of pain at left ATF ligament and PTF ligament, Moderate tone throughout left gastrosoleus complex. PT-OP-G Mobility & Gait Start: 05/01/18 15:21 Freq: Status: Active Protocol: Document 05/01/18 14:30 DCW (Rec: 05/01/18 15:53 DCW [id number]) OP Gait Assessment Gait Gait Assistance Required: Independent Able to Maintain Weight Bearing Status Yes During Gait Assistive Devices Assistive Device None Orthotic/Prosthetic Devices or Brace: No Gait Deviations General Gait Pattern Within Normal Limits Comments Gait Comments Community gait distance WNL, mild pain with turning while ambulating a fast sppeds, uncomfortable with uneven surfaces. PT-OP-K Range of Motion Start: 05/01/18 15:21 Freq: Status: Active Protocol: Document 05/23/18 12:00 DCW (Rec: 05/23/18 12:48 DCW [id number]) Ankle and Foot Goniometric Range of Motion Ankle and Foot Left Passive Dorsiflexion with Knee Flexed 14 Plantarflexion 70 Inversion 35 Eversion 20 Left Active Dorsiflexion with Knee Flexed 10 Plantarflexion 55 Inversion 35 Eversion 15 PT-OP-L Special Tests Start: 05/01/18 15:21 Freq: Status: Active Protocol: Document 05/01/18 14:30 DCW (Rec: 05/01/18 15:53 DCW [id number]) Special Tests Foot/Ankle Special Tests Post Tibiotalor Subluxation Test Results Negative Talor Tilt Test Results Negative Anterior Draw Test Results Negative PT-OP-M Strength Start: 05/01/18 15:21 Freq: Status: Active Protocol: Document 05/01/18 14:30 DCW (Rec: 05/01/18 15:53 DCW [id number]) Ankle/Foot Strength Ankle and Foot Manual Muscle Testing Left Dorsiflexion (L4) 4+ Good+ Plantarflexion (S1) 3+ Fair+ Inversion 4+ Good+ Eversion (S1) 4+ Good+ Comments single-leg heel raise on L foot = 2 reps PT-OP-T Assessment and Plan Start: 05/01/18 15:21 Freq: Status: Active Protocol: Document 10/01/18 11:41 DCW (Rec: 10/01/18 11:45 DCW [id number]) Physical Therapy Assessment Impairments Impairments Activity Tolerance Functional Activities Functional Mobility Pain ROM Soft Tissue Mobility Strength Tone Goals Four Impairment Ankle weakness [place] Goal (LTG) Pt to perform 15 (4+/5 MMT) L single-leg heel raises LTG Duration 05/29/18 Three Impairment Limited ROM Fpc Goal (LTG) Left dorsiflexion to increase from 5? to 20? Left eversion to increase from 15? to 25? LTG Duration 05/29/18 Two Impairment Pt unable to ride horses without ankle pain [place] Goal (LTG) Pt to return to riding her horse to pre-morbid distance without increasing ankle pain LTG Duration 05/29/18 One Impairment Pt does not have an appropriate HEP Short Term Goal (STG) Pt to be independent and compliant with an appropriate HEP STG Duration 05/15/18 Assessment Summary Assessment At pt's last visit, she had determined that she was approaching discharge, but requested her chart stay open for a month, incase she needed to return. Pt has now not been seen in more than 3 months, and will be discharged from skilled therapy at this time. Physical Therapy Plan Frequency and Duration Frequency of Treatment 1x/Week Duration of Treatment 8 weeks Plan of Care Start Date 05/01/18 Plan of Care End Date 06/26/18 Therapeutic Interventions Therapeutic Interventions Aquatic Therapy Home Exercise Program Joint Mobilizations Manual Therapy Patient/Caregiver Education Soft Tissue Mobilization Therapeutic Activities Therapeutic Exercises Modalities Cold Pack/Ice Massage Electric Stimulation Hot Packs Ultrasound Discharge Physical Therapy Discharge Reasons No Longer Attending PT Next Visit Focus/Plan Next Note Type Discharge Summary
== END 2018-10-02 13:11 | disposition home or self-care (01) ==
LOC: PHYS 11:15
PROVIDERS: Family Provider Family Medicine; PCP Family Medicine; Visit Provider Family Medicine
DX: M25.572 Pain in left ankle and joints of left foot (principal)
CPT/HCPCS: 97110; 97112; 97140; 97161

== ENCOUNTER → 2018-06-27 07:21 | Outpatient (CLI) | payer OTHER, SELFPAY ==
[2018-06-27 08:40] LABS: Add Manual Diff / Slide Review NO; Basophils Absolute Auto 0 /uL (0-100); Eosinophils Absolute Auto 100 /uL (0-450); Eosinophils Percent Auto 3.3 % (2-4); Hematocrit 37.5 % (36-46); Hemoglobin 12.4 g/dL (12.0-16.0); Lymphocytes Absolute Auto 1400 /uL (1100-4500); Mean Corpuscular Hemoglobin 30.4 PG (26-34); Mean Corpuscular Volume 92.2 fL (80-100); Monocytes Absolute Auto 500 /uL (0-900); Monocytes Percent Auto 12.4 % (3-14); Neutrophils Absolute Auto 1800 /uL (1500-7000); Neutrophils Percent Auto 47.3 % (50-75); Platelet Count 176 X10^3/uL (150-400); Red Blood Cell Count 4.07 X10^6/uL (4.0-5.2); Red Cell Distribution Width 13.3 % (11.6-14.8); White Blood Cell Count 3.9 X10^3/uL (4.5-11.0)
[2018-06-27 09:18] LABS: Alanine Aminotransferase 19 IU/L (9-52); Albumin 4.4 g/dL (3.5-5.0); Albumin Globulin Ratio 1.4 (1.0-2.8); Alkaline Phosphatase 64 U/L (38-126); Aspartate Aminotransferase 14 IU/L (14-36); Bilirubin Total 0.2 mg/dL (0.2-1.3); Blood Urea Nitrogen 20 mg/dL (7-17); Calcium 9.4 mg/dL (8.4-10.2); Carbon Dioxide 24 mmol/L (22-32); Chloride 105 mmol/L (98-107); Cholesterol 245 mg/dL (140-199); Estimated Glomerular Filt Rate 55.1 mL/min (>60); Globulin 3.2 g/dL (1.7-4.1); Glucose 85 mg/dL (80-110); HDL Cholesterol 66 mg/dL (40-60); HEMOLYSIS < 15 (0-50); LDL Cholesterol Calculated 167 mg/dL (<100); Potassium 4.1 mmol/L (3.4-5.1); Sodium 138 mmol/L (137-145); Total Protein 7.6 g/dL (6.3-8.2); Triglycerides 62 mg/dL (35-150)
[2018-06-27 09:44] LABS: TSH w/ Reflex to FT4 3.92 uIU/mL (0.47-4.68)
== END ==
PROVIDERS: Family Provider Family Medicine; PCP Family Medicine; Visit Provider Family Medicine
DX: E78.00 Pure hypercholesterolemia, unspecified (principal); I10 Essential (primary) hypertension
CPT/HCPCS: 36415; 80053; 80061; 84443; 85025

== ENCOUNTER → 2019-05-23 14:25 | Outpatient (CLI) | payer MEDICARE, SELFPAY ==
--- NOTE | 2019-05-23 | DI.MG.S_ITS ---
BILATERAL DIGITAL SCREENING MAMMOGRAM 3D/2D WITH CAD: 05/23/2019 CLINICAL: Routine screening. Family history of breast cancer. Comparison is made to exams dated: 05/10/2018 mammogram, 05/01/2017 mammogram, and 04/21/2016 mammogram - [facility]. There are scattered fibroglandular elements in both breasts. Current study was also evaluated with a Computer Aided Detection (CAD) system. No significant masses, calcifications, or other findings are seen in either breast. There has been no significant interval change. IMPRESSION: NEGATIVE There is no mammographic evidence of malignancy. A 1 year screening mammogram is recommended. This exam was interpreted at Station ID: [id number]. NOTE: For mammograms, a report in lay terms will be sent to the patient. Approximately 15% of breast malignancies will not be visualized mammographically. In the management of a palpable breast mass, a negative mammogram must not discourage biopsy of a clinically suspicious lesion. Electronically Signed By: Ryan brooks/tramaine:05/23/2019 16:02:28 letter sent: Normal Exam ACR BI-RADS Category 1: Negative 3341F
== END ==
PROVIDERS: Family Provider Family Medicine; PCP Family Medicine; Referring Provider Family Medicine; Visit Provider Family Medicine
DX: Z12.31 Encounter for screening mammogram for malignant neoplasm of breast (principal); Z80.3 Family history of malignant neoplasm of breast
CPT/HCPCS: 77063; 77067

== ENCOUNTER → 2019-09-26 07:53 | Outpatient (CLI) | payer MEDICARE, SELFPAY ==
[2019-09-26 08:29] LABS: Add Manual Diff / Slide Review NO; Basophils Absolute Auto 100 /uL (0-100); Basophils Percent Auto 1.2 % (0-2); Eosinophils Absolute Auto 100 /uL (0-450); Eosinophils Percent Auto 2.5 % (2-4); Hematocrit 36.9 % (36-46); Hemoglobin 12.6 g/dL (12.0-16.0); Lymphocytes Absolute Auto 1600 /uL (1100-4500); Lymphocytes Percent Auto 34.3 % (25-40); Mean Corpuscular HGB Conc 34.1 % (30-36); Mean Corpuscular Hemoglobin 31.8 PG (26-34); Mean Corpuscular Volume 93.3 fL (80-100); Monocytes Absolute Auto 500 /uL (0-900); Monocytes Percent Auto 9.7 % (3-14); Neutrophils Absolute Auto 2400 /uL (1500-7000); Neutrophils Percent Auto 52.3 % (50-75); Platelet Count 146 X10^3/uL (150-400); Red Blood Cell Count 3.96 X10^6/uL (4.0-5.2); Red Cell Distribution Width 13.5 % (11.6-14.8); White Blood Cell Count 4.6 X10^3/uL (4.5-11.0)
[2019-09-26 08:38] LABS: Alanine Aminotransferase 18 IU/L (<35); Albumin 4.1 g/dL (3.5-5.0); Albumin Globulin Ratio 1.3 (1.0-2.8); Alkaline Phosphatase 56 U/L (38-126); Aspartate Aminotransferase 16 IU/L (14-36); BUN Creatinine Ratio 22.2 (6-22); Bilirubin Total 0.5 mg/dL (0.2-1.3); Blood Urea Nitrogen 24 mg/dL (7-17); Calcium 9.5 mg/dL (8.4-10.2); Carbon Dioxide 27 mmol/L (22-32); Chloride 108 mmol/L (98-107); Cholesterol 239 mg/dL (140-199); Estimated Glomerular Filt Rate 50.3 mL/min (>60); Globulin 3.1 g/dL (1.7-4.1); Glucose 89 mg/dL (80-110); HDL Cholesterol 52 mg/dL (40-60); HEMOLYSIS < 15 (0-50); LDL Cholesterol Calculated 168 mg/dL (<100); Potassium 4.2 mmol/L (3.4-5.1); Sodium 140 mmol/L (137-145); Total Protein 7.2 g/dL (6.3-8.2); Triglycerides 97 mg/dL (35-150)
[2019-09-26 09:09] LABS: TSH w/ Reflex to FT4 6.68 uIU/mL (0.47-4.68)
[2019-09-26 09:46] LABS: Free T4, Direct Thyroxine 0.82 ng/dL (0.78-2.19)
== END ==
PROVIDERS: Family Provider Family Medicine; PCP Family Medicine; Referring Provider Family Medicine; Visit Provider Family Medicine
DX: E78.00 Pure hypercholesterolemia, unspecified (principal); I10 Essential (primary) hypertension
CPT/HCPCS: 36415; 80053; 80061; 84439; 84443; 85025

== ENCOUNTER → 2019-12-09 09:03 | Outpatient (CLI) | payer MEDICARE, SELFPAY ==
[2019-12-09 10:50] LABS: TSH w/ Reflex to FT4 2.98 uIU/mL (0.47-4.68)
== END ==
PROVIDERS: Family Provider Family Medicine; PCP Family Medicine; Referring Provider Family Medicine; Visit Provider Family Medicine
DX: R79.89 Other specified abnormal findings of blood chemistry (principal)
CPT/HCPCS: 36415; 84443

== ENCOUNTER → 2020-03-31 08:26 | Outpatient (CLI) | payer MEDICARE, SELFPAY ==
--- NOTE | 2020-03-31 08:28 | DI.RAD.S_ITS ---
PROCEDURE: XR KNEE LT 3V INDICATIONS: left knee pain TECHNIQUE: 3 views of the knee were acquired. COMPARISON: Located Within [facility], , KNEE 3V LEFT, 08/31/2009, 10:29. FINDINGS: Bones: No fractures or dislocations. Mild joint space narrowing in the medial compartment. Small superior patellar osteophyte. Overall findings similar to 2010. No suspicious bony lesions. Soft tissues: Suprapatellar joint effusion. No suspicious soft tissue calcifications. IMPRESSION: Similar mild left knee DJD. Joint effusion is present. Dictated by: Micheal Landa M.D. on 03/31/2020 at 10:35 Approved by: Micheal Landa M.D. on 03/31/2020 at 10:37
== END ==
PROVIDERS: Family Provider Family Medicine; PCP Family Medicine; Referring Provider Family Medicine; Visit Provider Family Medicine
DX: M25.562 Pain in left knee (principal); M17.12 Unilateral primary osteoarthritis, left knee; M25.462 Effusion, left knee
CPT/HCPCS: 73562

== ENCOUNTER → 2020-05-25 15:10 | Outpatient (CLI) | payer MEDICARE, SELFPAY ==
--- NOTE | 2020-05-25 15:11 | DI.MG.S_ITS ---
BILATERAL DIGITAL SCREENING MAMMOGRAM 3D/2D WITH CAD: 05/25/2020 CLINICAL: Routine screening. Family history of breast cancer. Comparison is made to exams dated: 05/23/2019 mammogram, 05/10/2018 mammogram, and 05/01/2017 mammogram - [facility]. There are scattered fibroglandular elements in both breasts. Current study was also evaluated with a Computer Aided Detection (CAD) system. No significant masses, calcifications, or other findings are seen in either breast. There has been no significant interval change. IMPRESSION: NEGATIVE There is no mammographic evidence of malignancy. A 1 year screening mammogram is recommended. This exam was interpreted at Station ID: [id number]. NOTE: For mammograms, a report in lay terms will be sent to the patient. Approximately 15% of breast malignancies will not be visualized mammographically. In the management of a palpable breast mass, a negative mammogram must not discourage biopsy of a clinically suspicious lesion. Electronically Signed By: Iván rand/tramaine:05/25/2020 17:51:10 letter sent: Normal Exam ACR BI-RADS Category 1: Negative 3341F
== END ==
PROVIDERS: Family Provider Family Medicine; PCP Family Medicine; Referring Provider Family Medicine; Visit Provider Family Medicine
DX: Z12.31 Encounter for screening mammogram for malignant neoplasm of breast (principal); Z80.3 Family history of malignant neoplasm of breast
CPT/HCPCS: 77063; 77067

== ENCOUNTER → 2020-09-24 07:02 | Outpatient (CLI) | payer MEDICARE, SELFPAY ==
[2020-09-24 07:47] LABS: Add Manual Diff / Slide Review NO; Basophils Absolute Auto 0 /uL (0-100); Basophils Percent Auto 0.9 % (0-2); Eosinophils Absolute Auto 100 /uL (0-450); Eosinophils Percent Auto 2.5 % (2-4); Hematocrit 38.1 % (36-46); Hemoglobin 12.5 g/dL (12.0-16.0); Lymphocytes Absolute Auto 1400 /uL (1100-4500); Lymphocytes Percent Auto 35.4 % (25-40); Mean Corpuscular HGB Conc 32.8 % (30-36); Mean Corpuscular Hemoglobin 30.6 PG (26-34); Mean Corpuscular Volume 93.2 fL (80-100); Monocytes Absolute Auto 500 /uL (0-900); Monocytes Percent Auto 11.4 % (3-14); Neutrophils Absolute Auto 2000 /uL (1500-7000); Neutrophils Percent Auto 49.8 % (50-75); Platelet Count 150 X10^3/uL (150-400); Red Blood Cell Count 4.09 X10^6/uL (4.0-5.2); Red Cell Distribution Width 13.1 % (11.6-14.8)
[2020-09-24 07:59] LABS: Alanine Aminotransferase 13 IU/L (<35); Albumin 4.1 g/dL (3.5-5.0); Albumin Globulin Ratio 1.2 (1.0-2.8); Alkaline Phosphatase 60 U/L (38-126); Aspartate Aminotransferase 16 IU/L (14-36); BUN Creatinine Ratio 22.2 (6-22); Bilirubin Total 0.3 mg/dL (0.2-1.3); Blood Urea Nitrogen 24 mg/dL (7-17); Calcium 9.7 mg/dL (8.4-10.2); Carbon Dioxide 28 mmol/L (22-32); Chloride 107 mmol/L (98-107); Cholesterol 231 mg/dL (140-199); Estimated Glomerular Filt Rate 50.2 mL/min (>60); Globulin 3.3 g/dL (1.7-4.1); Glucose 88 mg/dL (80-110); HDL Cholesterol 61 mg/dL (40-60); HEMOLYSIS < 15 (0-50); LDL Cholesterol Calculated 158 mg/dL (<100); Potassium 4.5 mmol/L (3.4-5.1); Sodium 140 mmol/L (137-145); Total Protein 7.4 g/dL (6.3-8.2); Triglycerides 62 mg/dL (35-150)
[2020-09-24 08:47] LABS: TSH w/ Reflex to FT4 3.73 uIU/mL (0.47-4.68)
== END ==
PROVIDERS: Family Provider Family Medicine; PCP Family Medicine; Referring Provider Family Medicine; Visit Provider Family Medicine
DX: E78.00 Pure hypercholesterolemia, unspecified (principal); I10 Essential (primary) hypertension
CPT/HCPCS: 36415; 80053; 80061; 84443; 85025

== ENCOUNTER → 2021-05-31 08:22 | Outpatient (CLI) | payer MEDICARE, SELFPAY ==
--- NOTE | 2021-05-31 | DI.MG.S_ITS ---
BILATERAL DIGITAL SCREENING MAMMOGRAM 3D/2D WITH CAD: 05/31/2021 CLINICAL: Routine screening. Family history of breast cancer. Comparison is made to exams dated: 05/25/2020 mammogram, 05/23/2019 mammogram, 05/10/2018 mammogram, 04/21/2016 mammogram, and 04/20/2015 mammogram - [facility]. There are scattered fibroglandular elements in both breasts. Current study was also evaluated with a Computer Aided Detection (CAD) system. No significant masses, calcifications, or other findings are seen in either breast. There has been no significant interval change. IMPRESSION: NEGATIVE There is no mammographic evidence of malignancy. A 1 year screening mammogram is recommended. This exam was interpreted at Station ID: [id number]. NOTE: For mammograms, a report in lay terms will be sent to the patient. Approximately 15% of breast malignancies will not be visualized mammographically. In the management of a palpable breast mass, a negative mammogram must not discourage biopsy of a clinically suspicious lesion. Electronically Signed By: Iván rand/tramaine:05/31/2021 09:04:37 letter sent: Normal Exam ACR BI-RADS Category 1: Negative 3341F
== END ==
PROVIDERS: Family Provider Family Medicine; PCP Family Medicine; Referring Provider Family Medicine; Visit Provider Family Medicine
DX: Z12.31 Encounter for screening mammogram for malignant neoplasm of breast (principal); Z80.3 Family history of malignant neoplasm of breast
CPT/HCPCS: 77063; 77067

== ENCOUNTER → 2022-10-03 11:44 | Outpatient (CLI) | payer MEDICARE, SELFPAY ==
--- NOTE | 2022-10-03 | DI.MG.S_ITS ---
BILATERAL DIGITAL SCREENING MAMMOGRAM 3D/2D WITH CAD: 10/03/2022 CLINICAL: Routine screening. Family history of breast cancer. Comparison is made to exams dated: 09/01/2021 mammogram - [facility], 05/31/2021 mammogram, and 05/25/2020 mammogram - [facility]. Both breasts are heterogeneously dense, which may obscure small masses (category c / 51-75% glandular tissue). Current study was also evaluated with a Computer Aided Detection (CAD) system. No significant masses, calcifications, or other findings are seen in either breast. There has been no significant interval change. IMPRESSION: NEGATIVE There is no mammographic evidence of malignancy. A 1 year screening mammogram is recommended. Based on the Tyrer Cuzick model (a risk assessment model) the patient's lifetime risk is 7.4% and her 10 year risk is 5.6%. According to the ACR, ACS, and NCCN guidelines, an annual breast MRI exam along with mammogram is recommended if the patient's lifetime risk is 20% or greater. This exam was interpreted at Station ID: [id number]. NOTE: For mammograms, a report in lay terms will be sent to the patient. Approximately 15% of breast malignancies will not be visualized mammographically. In the management of a palpable breast mass, a negative mammogram must not discourage biopsy of a clinically suspicious lesion. Electronically Signed By: Lloyd gautam/tramaine:10/03/2022 12:15:07 letter sent: Normal Exam ACR BI-RADS Category 1: Negative 3341F
== END ==
PROVIDERS: Family Provider Family Medicine; PCP Family Medicine; Referring Provider Family Medicine; Visit Provider Family Medicine
DX: Z12.31 Encounter for screening mammogram for malignant neoplasm of breast (principal); Z80.3 Family history of malignant neoplasm of breast
CPT/HCPCS: 77063; 77067

== ENCOUNTER → 2022-12-16 08:39 | Outpatient (CLI) | payer MEDICARE, SELFPAY ==
[2022-12-16 10:36] LABS: Add Manual Diff / Slide Review NO; Basophils Absolute Auto 0 /uL (0-100); Basophils Percent Auto 0.9 % (0-2); Eosinophils Absolute Auto 100 /uL (0-450); Eosinophils Percent Auto 2.7 % (2-4); Hematocrit 37.2 % (36-46); Hemoglobin 12.5 g/dL (12.0-16.0); Lymphocytes Absolute Auto 1300 /uL (1100-4500); Lymphocytes Percent Auto 30.8 % (25-40); Mean Corpuscular HGB Conc 33.6 % (30-36); Mean Corpuscular Hemoglobin 31.6 PG (26-34); Mean Corpuscular Volume 93.9 fL (80-100); Monocytes Absolute Auto 500 /uL (0-900); Monocytes Percent Auto 11.5 % (3-14); Neutrophils Absolute Auto 2300 /uL (1500-7000); Neutrophils Percent Auto 54.1 % (50-75); Platelet Count 172 X10^3/uL (150-400); Red Blood Cell Count 3.96 X10^6/uL (4.0-5.2); Red Cell Distribution Width 12.9 % (11.6-14.8); White Blood Cell Count 4.3 X10^3/uL (4.5-11.0)
[2022-12-16 10:52] LABS: Alanine Aminotransferase 16 IU/L (<35); Albumin 4.1 g/dL (3.5-5.0); Albumin Globulin Ratio 1.3 (1.0-2.8); Alkaline Phosphatase 55 U/L (38-126); Aspartate Aminotransferase 14 IU/L (14-36); BUN Creatinine Ratio 20.8 (6-22); Bilirubin Total 0.4 mg/dL (0.2-1.3); Blood Urea Nitrogen 20 mg/dL (7-17); Calcium 9.7 mg/dL (8.4-10.2); Carbon Dioxide 24 mmol/L (22-32); Chloride 107 mmol/L (98-107); Cholesterol 245 mg/dL (140-199); Estimated Glomerular Filt Rate > 60 mL/min (>60); Globulin 3.2 g/dL (1.7-4.1); Glucose 93 mg/dL (80-110); HDL Cholesterol 63 mg/dL (40-60); HEMOLYSIS < 15 (0-50); LDL Cholesterol Calculated 171 mg/dL (<100); Potassium 4.5 mmol/L (3.4-5.1); Sodium 139 mmol/L (137-145); Total Protein 7.3 g/dL (6.3-8.2); Triglycerides 57 mg/dL (35-150)
[2022-12-16 11:23] LABS: TSH w/ Reflex to FT4 2.41 uIU/mL (0.47-4.68)
== END ==
PROVIDERS: Family Provider Family Medicine; PCP Family Medicine; Referring Provider Family Medicine; Visit Provider Family Medicine
DX: E78.00 Pure hypercholesterolemia, unspecified (principal); I10 Essential (primary) hypertension
CPT/HCPCS: 36415; 80053; 80061; 84443; 85025

== ENCOUNTER → 2023-01-25 14:15 | Outpatient (CLI) | payer MEDICARE, SELFPAY ==
--- NOTE | 2023-01-25 14:16 | DI.RAD.S_ITS ---
Bone Density Report Name: LEATHA HARMAN Age: 72 Sex: Female Ethnicity: White Date of : 1950 Indication: postmenopausal; screening for osteoporosis; Referring Provider: WILLIAMS KAYE Study: Bone densitometry was performed. Exam Date: January 25, 2023 Accession number: [id number] Bone Density: Region BMD T-score Z-score Classification AP Spine(L1-L4) 0.913 -1.2 1.1 Osteopenia Femoral Neck (Left) 0.643 -1.9 0.1 Osteopenia Total Hip (Left) 0.833 -0.9 0.8 Normal Femoral Neck (Right) 0.628 -2.0 0.0 Osteopenia Total Hip (Right) 0.834 -0.9 0.8 Normal Total Hip Mean 0.833 -0.9 0.8 Normal World Health Organization criteria for BMD impression classify patients as: Normal (T-score at or above -1.0), Osteopenia (T-score between -1.0 and -2.5), or Osteoporosis (T-score at or below -2.5). 10-year Fracture Risk(1): Major Osteoporotic Fracture 12% Hip Fracture 2.6% Reported Risk Factors: [place] (), Neck BMD=0.628, BMI=23.4 (1) FRAX(R) Version 3.08. Fracture probability calculated for an untreated patient. Fracture probability may be lower if the patient has received treatment. Previous Exams: -- Region Exam Age BMD T-score BMD Change BMD Change Date g/cm2 vs Baseline vs Previous -- AP Spine (L1-L4) 01/25/2023 72 0.913 -1.2 -0.185 (-16.9%)# -0.185 (-16.9%)# 06/29/2017 67 1.099 0.5 Total Hip(Left) 01/25/2023 72 0.833 -0.9 -0.118 (-12.4%)# -0.118 (-12.4%)# 06/29/2017 67 0.951 0.1 Total Hip(Right) 01/25/2023 72 0.834 -0.9 -0.111 (-11.7%)# -0.111 (-11.7%)# 06/29/2017 67 0.945 0.0 -- *Denotes significance at 95% confidence level, LSC for AP Spine = 0.022 g/cm2, LSC for Total Hip = 0.027 g/cm2 # Denotes dissimilar scan types or analysis methods Impression: The patient has low bone mass, based on the Right Femoral Neck T-score. The patient has an estimated ten-year risk of hip fracture of 2.6% and an estimated ten-year risk of major fracture of 12%, based on the WHO FRAX algorithm. No significant bone loss was observed. Discussion: BONE DENSITY IS LOW AT ONE OR MORE SKELETAL SITES. This patient's lowest T-score is low at one or more skeletal sites. It meets the World Health Organization's (WHO) criteria for low bone mass (T-score between -1.0 and -2.5). The patient's 10-year risk of fracture as calculated by FRAX is less than the threshold where pharmacological therapy is recommended by the National Osteoporosis Foundation (NOF). However, all treatment decisions require clinical judgment and consideration of individual patient factors, including patient preferences, comorbidities, previous drug use, risk factors not captured in the FRAX model (e.g., frailty, falls, vitamin D deficiency, increased bone turnover, interval significant decline in bone density) and possible under or overestimation of fracture risk by FRAX. The patient should follow a healthful lifestyle (good nutrition with adequate calcium and vitamin D, and appropriate weight-bearing exercise). Follow-Up: Consider repeating this study in 2 to 3 years to reassess this patient's status, or sooner if there is some new clinical indication. Reported by: FABIANA UNDERWOOD M.D. on 01/25/2023 2:42:00 PM.
== END ==
PROVIDERS: Family Provider Family Medicine; PCP Family Medicine; Referring Provider Family Medicine; Visit Provider Family Medicine
DX: Z78.0 Asymptomatic menopausal state (principal); M85.851 Other specified disorders of bone density and structure, right thigh
CPT/HCPCS: 77080

== ENCOUNTER → 2023-04-18 11:04 | Outpatient (CLI) | payer MEDICARE, SELFPAY ==
[2023-04-18 12:55] LABS: Influenza A - CEPHEID Flu A POSITIVE (NEGATIVE); Influenza B - CEPHEID Flu B NEGATIVE (NEGATIVE); Respiratory Syncytial Virus Negative (Negative)
[2023-04-18 12:56] LABS: COVID-19 CEPHEID 4-PLEX PCR Negative (Negative)
== END ==
PROVIDERS: Family Provider Family Medicine; PCP Family Medicine; Visit Provider Physician Assistant
DX: R50.9 Fever, unspecified (principal)
CPT/HCPCS: 0241U

== ENCOUNTER 2023-05-23 12:43 | Day surgery (SDC) | payer MEDICARE, SELFPAY ==
--- NOTE | 2023-05-23 | PATH_ITS ---
[facility] Accession Number: [id number] No. of containers..01 Tissue . 01 Material submitted: . colon - ASCENDING COLON POLYP . 01 Diagnosis: ASCENDING COLON, POLYP: Tubular adenoma. CELESTINA 05/25/2023 1111 Local . 01 Electronically signed: . Daphnie Flowers MD, Pathologist NPI- [id number] . 01 Gross description: . ASCENDING COLON POLYP: Received in formalin are 2 fragment(s) of younger, soft tissue measuring 0.1 x 0.1 x 0.1 cm to 0.3 x 0.3 x 0.2 cm submitted entirely in 1 cassette(s) /RADHA 05/24/20232037 Local . 01 Pathologist provided ICD-10: D12.2 . 01 CPT . 625371 Specimen Comment: A courtesy copy of this report has been sent to [phone] Performed at: 01 [facility] [address] [place] [address], [place], [place] [id number] MD Ryan Walls MD Phone: [phone]
[2023-05-23 14:05] VITALS: BP 145/76; PULSE 72; RESP 16; TEMP 36.6; O2SAT 100
[2023-05-23] MEDS: LACTATED RINGERS 1,000 ML 42 ML IV (14:13)
--- NOTE | 2023-05-23 15:08 | PM.HP.1 ---
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 No abdominal concerns today. Last colonoscopy 10 years ago. No family history of intestinal malignancy. [facility] Medical History Insomnia, psychophysiological Headache disorder Migraines (~1991) Headache (~1987) Measles Anemia (~2009) Dry eye syndrome (~1989) Hearing loss (~2011) Cataracts, bilateral (~2011) Irregular menstrual cycle Genital warts Fibroids Benign tumor of pineal body Hypertension (~2011) Tear of meniscus of knee (~2009) Back problem (~2004) Fractures Chronic back pain (~2004) Carpal tunnel syndrome Syncope, cardiogenic Surgical History Anesthesia History of oral surgery Foreign body (~2009) History of cataract removal with insertion of prosthetic lens Status post arthroscopy (~2010) Status post hysterectomy (~1988) Family History Brother Alzheimer's disease Father Abdominal aortic aneurysm Grandmother Alzheimer's disease Mother Hypertension Social History marital status: Smoking Status: Never smoker alcohol intake: current substance use type: does not use Meds Home Medications and Allergies Home Medications Medication Instructions Recorded Confirmed Type meloxicam 15 mg tablet 15 mg PO DAILY PRN 12/08/20 04/18/23 History cyclobenzaprine 5 mg tablet 5 mg PO HSP PRN muscle spasm #20 01/21/22 04/18/23 Rx tabs lisinopril 40 mg tablet 40 mg PO QDAY #90 tabs 12/19/22 05/23/23 Rx prednisone 5 mg tablet See Rx Instructions PO BID #20 tabs 01/23/23 04/18/23 Rx sodium,potassium,mag sulfates 17.5 See Rx Instructions PO .COMPLEX 03/22/23 04/18/23 Rx gram-3.13 gram-1.6 gram oral soln #354 mL (Suprep Bowel Prep Kit) gabapentin 600 mg tablet See Rx Instructions .Route 04/06/23 05/23/23 Rx .COMPLEX #90 tabs fluconazole 40 mg/mL oral 40 mg PO DAILY #35 mL 04/20/23 Rx suspension Allergies Allergy/AdvReac Type Severity Reaction Status Date / Time Sulfa (Sulfonamide Allergy Intermediate RASH Verified 05/23/23 14:04 Antibiotics) Exam Vital Signs (past 8 hours): - 05/23/23 14:05 Temperature 98 F Pulse Rate 72 Respiratory Rate 16 Blood Pressure 145/76 H Pulse Oximetry 100 Oxygen Delivery Method Room Air Oxygen Delivery Method Room Air Narrative Exam Narrative: General adult woman alert oriented no acute distress Chest nonlabored respiration Extremities warm well perfused Assessment & Plan Assessment & Plan narrative: The patient requires colorectal screening and colonoscopy is recommended. Technical details were discussed. Risks, benefits, alternatives explained. Risks including but not limited to myocardial infarction, aspiration, bleeding, pain, missed lesion, incomplete examination, need for further radiographic studies, colonic perforation, and need for major abdominal surgery were discussed. All questions were answered to their satisfaction, and they are in agreement with this plan.
[2023-05-23 15:41] VITALS: BP 132/64; PULSE 67; RESP 16; TEMP 37.1; O2SAT 97
--- NOTE | 2023-05-23 15:42 | P.OP.COLON_ITS ---
Operative Date/Time/Diagnoses Date of procedure: 05/23/23 Time of procedure: 15:42 Pre-op diagnosis: Colorectal screening Procedure & Clinicians Study performed: Colonoscopy and polypectomy Same procedure as scheduled: Yes Indications: Colorectal screening Surgeon: Donte Parker Procedure Notes Procedure in detail: The history and physical was performed/updated and the patient is ASA class is 2. The procedure was discussed in detail with the patient. Potential risks complications including infection, bleeding, missed diagnosis, perforation, need for surgery, and were explained. Their questions were answered and informed consent was obtained. Patient was brought to the procedure room and placed standard monitoring equipment. The patient's vital signs were monitored continuously throughout the entire procedure. Prior to starting time-out was performed. The patient was placed in the left lateral recumbent position. Procedural sedation was administered by anesthesia. Examination began with a thorough inspection of the perianal area there was no evidence of fissures, fistulae, external hemorrhoids or cutaneous malignancy. The colonoscopy scope was then placed into the anal canal and was advanced to the cecum, which was identified by the ileocecal valve, the appendiceal orifice and the confluence of the taenia. The scope was then slowly withdrawn examining colon thoroughly in all directions, irrigating it of any residual stool. The scope was retroflexed within the rectum The patient tolerated the procedure well. They will be discharged once criteria are met. The prep was of good/excellent quality. The withdrawl time was 6 min utes. FINDINGS * Ascending colon-3 mm polyp removed with biopsy forceps. * Internal hemorrhoids Specimen(s): other (Ascending colonic polyp) Impression: Colonic polyp x1 Post-procedure Plan for aftercare: Follow-up is dependent on pathology findings Disposition: same day surgery
[2023-05-23 15:46] VITALS: BP 127/65; PULSE 65; RESP 15; TEMP 36.9; O2SAT 97
[2023-05-23 15:51] VITALS: BP 124/60; PULSE 61; RESP 13; O2SAT 97
[2023-05-23 15:57] VITALS: BP 125/64; PULSE 65; RESP 18; TEMP 36.9; O2SAT 98
== END 2023-05-23 16:45 | disposition home or self-care (01) ==
PROVIDERS: Family Provider Family Medicine; PCP Family Medicine; Referring Provider Surgery; Visit Provider Surgery
PROC: 0DJD8ZZ Inspection of Lower Intestinal Tract, Via Natural or Artificial Opening Endoscopic (ICD-10-PCS; CPT 45378; principal; 2023-05-23 13:30)
DX: Z12.11 Encounter for screening for malignant neoplasm of colon (principal); K64.8 Other hemorrhoids; D12.2 Benign neoplasm of ascending colon
CPT/HCPCS: 45380; J2704

== ENCOUNTER → 2023-06-19 09:01 | Outpatient (CLI) | payer MEDICARE, SELFPAY ==
[2023-06-19 11:03] LABS: Cholesterol 233 mg/dL (140-199); HDL Cholesterol 66 mg/dL (40-60); LDL Cholesterol Calculated 149 mg/dL (<100); Triglycerides 89 mg/dL (35-150)
== END ==
PROVIDERS: Family Provider Family Medicine; PCP Family Medicine; Referring Provider Physician Assistant; Visit Provider Physician Assistant
DX: E78.5 Hyperlipidemia, unspecified (principal)
CPT/HCPCS: 36415; 80061

== ENCOUNTER → 2023-10-24 09:15 | Outpatient (CLI) | payer MEDICARE, SELFPAY ==
--- NOTE | 2023-10-24 09:16 | DI.MG.S_ITS ---
BILATERAL DIGITAL SCREENING MAMMOGRAM 3D/2D WITH CAD: 10/24/2023 CLINICAL: Routine screening. Family history of breast cancer. Comparison is made to exams dated: 10/03/2022 mammogram, 05/31/2021 mammogram, and 05/25/2020 mammogram - [facility]. There are scattered areas of fibroglandular density in both breasts (category b / 25%-50% glandular tissue). Current study was also evaluated with a Computer Aided Detection (CAD) system. No significant masses, calcifications, or other findings are seen in either breast. There has been no significant interval change. IMPRESSION: NEGATIVE There is no mammographic evidence of malignancy. A 1 year screening mammogram is recommended. Based on the Tyrer Cuzick model (a risk assessment model) the patient's lifetime risk is 4.6% and her 10 year risk is 3.8%. According to the ACR, ACS, and NCCN guidelines, an annual breast MRI exam along with mammogram is recommended if the patient's lifetime risk is 20% or greater. This exam was interpreted at Station ID: [id number]. NOTE: For mammograms, a report in lay terms will be sent to the patient. Approximately 15% of breast malignancies will not be visualized mammographically. In the management of a palpable breast mass, a negative mammogram must not discourage biopsy of a clinically suspicious lesion. Electronically Signed By: Anh lamb/tramaine:10/24/2023 12:16:08 letter sent: Normal Exam ACR BI-RADS Category 1: Negative 3341F
== END ==
LOC: MAMMO 09:16
PROVIDERS: Family Provider Family Medicine; PCP Family Medicine; Referring Provider Family Medicine; Visit Provider Family Medicine
DX: Z12.31 Encounter for screening mammogram for malignant neoplasm of breast (principal); Z80.3 Family history of malignant neoplasm of breast; R92.323 Mammographic fibroglandular density, bilateral breasts
CPT/HCPCS: 77063; 77067

== ENCOUNTER → 2024-01-03 09:55 | Outpatient (CLI) | payer MEDICARE, SELFPAY ==
--- NOTE | 2024-01-03 09:56 | DI.RAD.S_ITS ---
PROCEDURE: XR RIBS LT MIN 3V W CXR1V INDICATIONS: Fell from horse; pain L side ribs just below breast TECHNIQUE: 2 views of the ribs were acquired, along with a single view chest. COMPARISON: None. FINDINGS: Surgical changes and devices: None. Bones and chest wall: Mildly displaced left lateral 5th and 4th rib fractures. Lungs and pleura: No pleural effusions or pneumothorax. Lungs appear clear. Mediastinum: Mediastinal contours appear normal. Heart size is normal. IMPRESSION: Mildly displaced left lateral 4th and 5th rib fractures. No pneumothorax. Dictated by: Obey Barba M.D. on 01/03/2024 at 11:11 Approved by: Obey Barba M.D. on 01/03/2024 at 11:12
--- NOTE | 2024-01-03 09:56 | DI.RAD.S_ITS ---
PROCEDURE: XR THORACIC SPINE 3V INDICATIONS: Fell from horse; pain L side ribs just below breast TECHNIQUE: 3 views of the thoracic spine were acquired. COMPARISON: None. FINDINGS: Bones: Mild anterior wedging of the L2 vertebral body. No suspicious bony lesions. 12 pairs of ribs are noted, and appear intact where visualized. Soft tissues: No paravertebral stripe thickening. IMPRESSION: Mild anterior wedging of the L2 vertebral body, suspicious for an age indeterminate compression deformity. Correlate with point tenderness. Dictated by: Obey Barba M.D. on 01/03/2024 at 11:10 Approved by: Obey Barba M.D. on 01/03/2024 at 11:11
== END ==
LOC: RAD 09:56
PROVIDERS: Family Provider Family Medicine; PCP Family Medicine; Referring Provider Physician Assistant; Visit Provider Physician Assistant
DX: S22.42XA Multiple fractures of ribs, left side, initial encounter for closed fracture (principal); S29.9XXA Unspecified injury of thorax, initial encounter; S39.92XA Unspecified injury of lower back, initial encounter; V80.010A Animal-rider injured by fall from or being thrown from horse in noncollision accident, initial encounter
CPT/HCPCS: 71101; 72072

== ENCOUNTER → 2024-05-08 08:57 | Outpatient (CLI) | payer MEDICARE, SELFPAY ==
[2024-05-08 10:10] LABS: Add Manual Diff / Slide Review NO; Basophils Absolute Auto 100 /uL (0-100); Basophils Percent Auto 1.1 % (0-2); Eosinophils Absolute Auto 200 /uL (0-450); Eosinophils Percent Auto 3.4 % (2-4); Hematocrit 37.7 % (36-46); Hemoglobin 12.6 g/dL (12.0-16.0); Lymphocytes Absolute Auto 1600 /uL (1100-4500); Lymphocytes Percent Auto 34.1 % (25-40); Mean Corpuscular HGB Conc 33.4 % (30-36); Mean Corpuscular Hemoglobin 31.5 PG (26-34); Mean Corpuscular Volume 94.3 fL (80-100); Monocytes Absolute Auto 500 /uL (0-900); Monocytes Percent Auto 11.2 % (3-14); Neutrophils Absolute Auto 2400 /uL (1500-7000); Neutrophils Percent Auto 50.2 % (50-75); Platelet Count 184 X10^3/uL (150-400); Red Cell Distribution Width 13.1 % (11.6-14.8); White Blood Cell Count 4.8 X10^3/uL (4.5-11.0)
[2024-05-08 10:49] LABS: Alanine Aminotransferase 16 IU/L (<35); Albumin 4.3 g/dL (3.5-5.0); Albumin Globulin Ratio 1.4 (1.0-2.8); Alkaline Phosphatase 58 U/L (38-126); Aspartate Aminotransferase 16 IU/L (14-36); BUN Creatinine Ratio 18.3 (6-22); Bilirubin Total 0.6 mg/dL (0.2-1.3); Blood Urea Nitrogen 20 mg/dL (7-17); Calcium 9.9 mg/dL (8.4-10.2); Carbon Dioxide 26 mmol/L (22-32); Chloride 106 mmol/L (98-107); Cholesterol 246 mg/dL (140-199); Estimated Glomerular Filt Rate 54 mL/min (>60); Glucose 82 mg/dL (80-110); HDL Cholesterol 67 mg/dL (40-60); HEMOLYSIS < 15 (0-50); LDL Cholesterol Calculated 167 mg/dL (<100); Potassium 4.6 mmol/L (3.4-5.1); Sodium 138 mmol/L (137-145); Total Protein 7.3 g/dL (6.3-8.2); Triglycerides 60 mg/dL (35-150)
[2024-05-08 11:19] LABS: Thyroid Stimulating Hormone 2.73 uIU/mL (0.47-4.68)
== END ==
PROVIDERS: Family Provider Family Medicine; PCP Family Medicine; Referring Provider Family Medicine; Visit Provider Family Medicine
DX: I10 Essential (primary) hypertension (principal); E78.00 Pure hypercholesterolemia, unspecified
CPT/HCPCS: 36415; 80053; 80061; 84443; 85025

== ENCOUNTER → 2024-08-15 13:38 | Outpatient (CLI) | payer MEDICARE, SELFPAY ==
--- NOTE | 2024-08-15 13:41 | DI.RAD.S_ITS ---
PROCEDURE: XR FINGER LT MIN 2V INDICATIONS: FINGER INJURY/PAIN TECHNIQUE: AP hand, 2 views of the left 5th finger (s) acquired. COMPARISON: None. FINDINGS: Bones: There are no fracture or other osseous abnormalities Joints: Moderate STT and 1st CMC degeneration noted. There is mild degenerative change in all the MCP and interphalangeal joints Soft tissues: No soft tissue abnormality. IMPRESSION: No fracture or other posttraumatic change. Degeneration Dictated by: Reynaldo Boggs M.D. on 08/16/2024 at 11:10 Approved by: Reynaldo oBggs M.D. on 08/16/2024 at 11:11
== END ==
PROVIDERS: Family Provider Family Medicine; PCP Family Medicine; Referring Provider Family Medicine; Visit Provider Family Medicine
DX: S69.92XA Unspecified injury of left wrist, hand and finger(s), initial encounter (principal); M19.032 Primary osteoarthritis, left wrist; X58.XXXA Exposure to other specified factors, initial encounter
CPT/HCPCS: 73140